=== PATIENT | female | born 1970 | race Caucasian/White ===

== ENCOUNTER 2023-11-04 15:48 | Emergency (ER) | payer MEDICAID ==
[2023-11-04 16:34] LABS: HCG,QUALITATIVE BLOOD NEGATIVE
[2023-11-04 16:37] LABS: BASOPHILS % (AUTO) 1.1 %; EOSINOPHILS % (AUTO) 3.3 %; HCT - HEMATOCRIT 31.1 % (37.0-47.0); HGB - HEMOGLOBIN 9.1 g/dL (12.0-16.0); LYMPHOCYTES % (AUTO) 14.4 %; MEAN CORPUSCULAR HGB CONC 29.3 g/dL (32.0-36.0); MEAN CORPUSCULAR VOLUME 82.1 fL (81.0-99.0); MEAN PLATELET VOLUME 9.9 fL (7.9-10.8); MONOCYTES % (AUTO) 15.6 %; NEUTROPHILS % (AUTO) 65.6 %; PLT - PLATELET COUNT 46 10^3/uL (130-450); RED BLOOD COUNT 3.79 10^6/uL (4.20-5.40); RED CELL DISTRIBUTION WIDTH 17.7 % (12.0-15.0)
[2023-11-04 16:40] LABS: WHITE BLOOD COUNT 1.8 x10^3/uL (4.8-10.8)
[2023-11-04 16:41] LABS: ABNORMAL LYMPHS % (MANUAL) 0 %
[2023-11-04 16:51] LABS: ALBUMIN 3.3 g/dL (3.2-5.5); ALBUMIN/GLOBULIN RATIO 0.9 (1.0-2.2); CALCIUM 8.6 mg/dL (8.5-10.3); CREATININE 0.6 mg/dL (0.6-1.3); POTASSIUM 3.5 mmol/L (3.5-4.5); TOTAL PROTEIN 6.8 g/dL (6.4-8.9)
[2023-11-04 17:01] LABS: BAND NEUTROPHILS % (MANUAL) 2 %; LYMPHOCYTES # (MANUAL) 0.3 10^3/uL (1.5-3.5); LYMPHOCYTES % (MANUAL) 15 %; MONOCYTES # (MANUAL) 0.2 10^3/uL (0.0-1.0); NEUTROPHILS # (MANUAL) 1.2 10^3/uL (1.5-6.6); REACTIVE LYMPHS % (MANUAL) 3 %
[2023-11-04 17:02] LABS: DIFFERENTIAL COMMENT MANUAL DIFFERENTIAL; PLATELET ESTIMATE, MANUAL DECREASED (<130,000) (NORMAL); PLATELET MORPHOLOGY NORMAL APPEARANCE (NORMAL)
[2023-11-04] MEDS ORDERED: iohexoL-300 100 ML VIAL ONE (17:08)
[2023-11-04 17:19] LABS: THYROID STIMULATING HORMONE 1.75 uIU/mL (0.34-5.60)
[2023-11-04 17:51] LABS: INR 1.8 (0.8-1.2); PT - PROTHROMBIN TIME 18.4 secs (9.9-12.6)
--- NOTE | 2023-11-04 17:54 | ED Physician Documentation ---
History of Present Illness - Stated complaint Stated Complaint: - Chief complaint Chief Complaint: Abd Pain - History obtained from History obtained from: Patient - Additonal information Additional information: The patient presents to the emergency department with multiple complaints but primarily, menorrhagia that has gotten progressively worse over the last 10 years but especially the past 4 days. The patient states that she has had some irregular periods for the last 10 years and that she has never seen an [facility] for this. She has been admitted twice once in [place] in 2018 and once in [facility] last April. She states that she was never told why she has the bleeding and that "nothing was ever done" for what ever the underlying problem was. She states she was told that she had multiple "cysts" in her uterus after imaging in [place]. She denies being on any anticoagulants. She has history of factor V Leiden actually, she states. She has never had a clot that she knows of. The patient does have "liver problems", she states, but that she is not sure why and that "they could never figure it out". She denies currently using alcohol though she does have a history of this. The patient denies any abdominal pain or cramping. She has never been told that she knows of that she has fibroids. Patient states that she has had a sore in her nose that has not healed over the last 8 months and she is worried about that. She also states she has a lesion on her right shoulder That his suddenly scabbed. She denies any recent weight loss but actually states that she has had weight gain recently and that she has noticed swelling in her ankles that she normally does not have. Patient states she does feel tired. She has had some intermittent nausea and some decrease in appetite. She has not noticed any fullness in her stomach area. No other complaints at this time. PD PAST MEDICAL HISTORY - Past Medical History Past Medical History: Yes Cardiovascular: None Respiratory: None Neuro: None Endocrine/Autoimmune: None GI: None BELT LOOP CUTTER: None : None HEENT: None Psych: None Musculoskeletal: None Derm: None - Past Surgical History Past Surgical History: No - Allergies Allergies/Adverse Reactions: Allergies Allergy/AdvReac Type Severity Reaction Status Date / Time levofloxacin [From Levaquin] Allergy Rash Verified 11/04/23 15:59 - Social History Does the pt smoke?: Yes Smoking Status: Current every day smoker Does the pt drink ETOH?: Yes Does the pt have substance abuse?: No - Immunizations Immunizations are current?: Yes - POLST Patient has POLST: No PD ED PE NORMAL - Vitals Vital signs reviewed: Yes - General General: Alert and oriented X 3, No acute distress, Well developed/nourished, Other (Appears older than stated age.) - HEENT HEENT: Atraumatic, PERRL, EOMI, Moist mucous membranes, Other (Icteric) - Neck Neck: Supple, no meningeal sign - Cardiac Cardiac: RRR, No murmur - Respiratory Respiratory: No respiratory distress, Clear bilaterally - Abdomen Abdomen: Soft, Non tender, Other (Firm mass noted in left upper quadrant. Nontender. No right upper quadrant mass.) - Female Female : Water Conservationist present, Other (Moderate dark red vaginal bleeding. No cervical motion tenderness. No cervical mass. Firm mass noted in uterus. No adnexal tenderness.) - Derm Derm: Warm and dry, No rash, Other (Slight jaundice.) - Extremities Extremities: No deformity, Other (1+ pitting edema bilateral ankles.) - Neuro Neuro: Other (Alert, appropriate, grossly intact.) - Psych Psych: Normal mood, Normal affect Results - Vitals Vitals: Vital Signs - 24 hr 11/04/23 15:53 Temperature 36.5 C Heart Rate 90 Respiratory 16 Rate Blood Pressure 137/65 H O2 Saturation 99 Oxygen O2 Source Room air - Labs Labs: Laboratory Tests 11/04/23 11/04/23 11/04/23 16:06 16:06 16:06 WBC 1.8 L* RBC 3.79 L Hgb 9.1 L Hct 31.1 L MCV 82.1 MCH 24.0 L MCHC 29.3 L RDW 17.7 H Plt Count 46 L MPV 9.9 Neut # (Auto) Not Reportable Lymph # (Auto) Not Reportable Ray # (Auto) Not Reportable Eos # (Auto) Not Reportable Baso # (Auto) Not Reportable Absolute Nucleated RBC Not Reportable Total Counted 100 Band Neuts % (Manual) 2 Reactive Lymphs % (Man) 3 Abnorm Lymph % (Manual) 0 Nucleated RBC % Not Reportable Neutrophils # (Manual) 1.2 L Lymphocytes # (Manual) 0.3 L Monocytes # (Manual) 0.2 Eosinophils # (Manual) 0.0 Basophils # (Manual) 0.0 Differential Comment MANUAL DIFFERENTIAL Platelet Estimate DECREASED (<130,000) Platelet Morphology NORMAL APPEARANCE RBC Morph Micro Appear 1+ POLYCHROMASIA Sodium 134 L Potassium 3.5 Chloride 104 Carbon Dioxide 23 Anion Gap 7.0 BUN 5 L Creatinine 0.6 Estimated GFR (MDRD) 105 Glucose 134 H Calcium 8.6 Total Bilirubin 4.0 H AST 58 H ALT 23 Alkaline Phosphatase 83 Total Protein 6.8 Albumin 3.3 Globulin 3.5 Albumin/Globulin Ratio 0.9 L Lipase 42 TSH 1.75 Serum HCG, Qual NEGATIVE PD Medical Decision Making - ED course Complexity details: reviewed results, re-evaluated patient, considered differential, d/w patient ED course: Patient was found to be pancytopenic with a platelet count of 46. Her ultrasound showed a single uterine fibroid. She was found to have an elevated bilirubin on her ER abdominal panel of 4.0. Based on the physical exam finding of left upper quadrant mass I felt the patient should have a CT scan of the abdomen and pelvis as well. I added a chest because of concern for potential underlying malignancy. This is pending at this time. Patient signed out to Dr. Lynn at change of shift, pending CT results and final disposition. Departure - Departure
[2023-11-04] MEDS: iohexoL-300 100 ML VIAL IVP ONE (18:01)
--- NOTE | 2023-11-04 18:12 | Ultrasound Report ---
PROCEDURE: Pelvic w/Transvaginal INDICATIONS: pelvic pain, R TECHNIQUE: Real-time scanning was performed of the pelvic organs, with image documentation. Additional endovagi nal scanning was necessary due to incomplete visualization of the adnexal and endometrial structures by transabdominal scanning. COMPARISON: None. FINDINGS: Uterus: Uterus is anteverted and normal in size at 10.6 x 6.2 x 8.9 cm. The myometrium is diffusely heterogeneous. The endometrium measures 7 mm in combined thickness. Fundal fibroid measuring up to 2.6 cm. Posterior wall uterine fibroid measuring 2.5 cm. Posterior wall fibroid measuring 5.7 cm wit h mass effect upon the underlying endometrial stripe. Ovaries: The right ovary measures 3 x 1.8 x 2.3 cm cm, with a calculated ovarian volume of 5.1 cc. The left ovary measures 1.5 x 1.5 x 1.3 cm, with a calculated ovarian volume of 1.6 cc. The ovaries have a normal sonographic appearance. Less than 12 follicles can be seen in each ovary. No adnexal masses are seen. No cystic lesions measuring greater than 3 cm. Other: No pathologic free abdominal or pelvic fluid. IMPRESSION: Fibroid uterus. Reviewed by: Georges Mistry MD on 11/04/2023 5:11 PM KISHAN Approved by: Georges Mistry MD on 11/04/2023 5:11 PM KISHAN Station ID: [id number]
--- NOTE | 2023-11-04 18:22 | CT Report ---
PROCEDURE: Chest W INDICATIONS: LUQ mass, cough CONTRAST: 100ml omni 300 TECHNIQUE: After the administration of intravenous contrast, a CT scan of the chest was performed. Images were recorded and evaluated at appropriate window settings. Reformats: axial MIP of the chest, coronal and sagittal. For radiation dose reduction, the following was used: automated exposure control, adjustme nt of mA and/or kV according to patient size. COMPARISON: None. FINDINGS: Image quality: Diagnostic. Chest wall and lower neck: No thyroid nodule which requires sonographic follow up. No axillary or sup raclavicular adenopathy by size. Lungs and pleura: No consolidation. No pleural effusions. No pneumothorax. No suspicious pulmonary n odules which require follow up. Mediastinum: Heart size is normal. No pericardial effusion. No large vessel abnormality. No mediastin al adenopathy by size criteria. Bones: No aggressive osseous abnormality. Upper Abdomen: Small hiatal hernia. Hepatosplenomegaly. Hepatic steatosis. IMPRESSION: No concerning consolidation. Hepatosplenomegaly. Reviewed by: Georges Mistry MD on 11/04/2023 5:20 PM KISHAN Approved by: Georges Mistry MD on 11/04/2023 5:20 PM KISHAN Station ID: [id number]
--- NOTE | 2023-11-04 18:28 | CT Report ---
PROCEDURE: Abdomen/Pelvis W INDICATIONS: LUQ mass, elevated bili CONTRAST: 100ml omni 300 TECHNIQUE: After the administration of intravenous contrast, a CT scan of the abdomen and pelvis was performed. Images were recorded and evaluated at appropriate window settings. Reformats: coronal and sagittal. F or radiation dose reduction, the following was used: automated exposure control, adjustment of mA and /or kV according to patient size. COMPARISON: CT chest from same date, pelvic ultrasound from same date. FINDINGS: Image quality: Diagnostic. Lower chest: Unremarkable. Liver: Hepatomegaly measuring 19 cm in cranial caudal dimension. Nodular contours of the liver. Hepat ic steatosis. Gastrosplenic varices. Cannulization of the umbilical vein. Portal vein is patent. Esop hageal varices. Gallbladder and biliary tree: No radiopaque stones or wall thickening. No biliary dilation. Spleen: Splenomegaly measuring 22 cm in coronal dimension. Pancreas: No pancreatic ductal dilation. Adrenals: No adrenal nodule. Kidneys and ureters: No hydronephrosis. No renal cystic lesion which requires follow up. No solid mas s. Stomach, bowel and peritoneum: No bowel distension. No pathologic free fluid. Lymph nodes: Mildly prominent lymph nodes throughout periaortic region. Vessels: No infrarenal aortic aneurysm. PELVIS Reproductive organs: Enlarged heterogeneous appearing uterus. Bladder: No abnormal wall thickening, accounting for underdistention. Pelvic lymph nodes: No pelvic adenopathy by size criteria. Bones: No aggressive osseous abnormality. Other: No significant ventral or inguinal hernia. IMPRESSION: Hepatosplenomegaly with cirrhotic changes and prominent varicosities. Reviewed by: Georges Mistry MD on 11/04/2023 5:26 PM KISHAN Approved by: Georges Mistry MD on 11/04/2023 5:26 PM AKGAMA Station ID: [id number]
[2023-11-04] MEDS: SODIUM CHLORIDE 0.9% 1,000 ML IV STA (18:31)
[2023-11-04 19:14] LABS: BASOPHILS % (AUTO) 0.7 %; EOSINOPHILS % (AUTO) 2.8 %; HCT - HEMATOCRIT 27.7 % (37.0-47.0); HGB - HEMOGLOBIN 8.2 g/dL (12.0-16.0); LYMPHOCYTES % (AUTO) 16.3 %; MEAN CORPUSCULAR HEMOGLOBIN 24.5 pg (27.0-31.0); MEAN CORPUSCULAR HGB CONC 29.6 g/dL (32.0-36.0); MEAN CORPUSCULAR VOLUME 82.7 fL (81.0-99.0); MEAN PLATELET VOLUME 9.7 fL (7.9-10.8); MONOCYTES % (AUTO) 14.9 %; NEUTROPHILS % (AUTO) 64.6 %; PLT - PLATELET COUNT 39 10^3/uL (130-450); RED BLOOD COUNT 3.35 10^6/uL (4.20-5.40); RED CELL DISTRIBUTION WIDTH 17.7 % (12.0-15.0)
[2023-11-04 19:16] LABS: WHITE BLOOD COUNT 1.4 x10^3/uL (4.8-10.8)
[2023-11-04 19:17] LABS: ABNORMAL LYMPHS % (MANUAL) 0 %
[2023-11-04 19:39] LABS: BAND NEUTROPHILS % (MANUAL) 2 %; BASOPHILS % (MANUAL) 2 %; EOSINOPHILS # (MANUAL) 0.1 10^3/uL (0-0.7); LYMPHOCYTES # (MANUAL) 0.2 10^3/uL (1.5-3.5); LYMPHOCYTES % (MANUAL) 13 %; MONOCYTES # (MANUAL) 0.2 10^3/uL (0.0-1.0); NEUTROPHILS # (MANUAL) 0.9 10^3/uL (1.5-6.6); REACTIVE LYMPHS % (MANUAL) 3 %
[2023-11-04 19:40] LABS: DIFFERENTIAL COMMENT MANUAL DIFFERENTIAL; PLATELET ESTIMATE, MANUAL DECREASED (<130,000) (NORMAL); PLATELET MORPHOLOGY NORMAL APPEARANCE (NORMAL)
--- NOTE | 2023-11-04 19:57 | ED Physician Documentation ---
ED Addendum - Addendum Addendum: Patient was signed out to me by Dr. Fortune awaiting repeat evaluation, CT scan and follow-up and repeat CBC. CT scans show hepatosplenomegaly, likely liver cirrhosis and fibroid uterus. Her hemoglobin did drop approximately 1 g. We did receive records from [place]. Her laboratory studies are not much changed from March 2023. She has a history of pancytopenia, liver cirrhosis. Apparently has a history of factor V Leiden, hematology consult did not recommend anticoagulation due to her ongoing bleeding issues. She has portal hypertension as well. Apparently there was plan to do a bone marrow biopsy but this was not performed per the patient. At the time of her admission her white blood cell count was 2.3, hemoglobin 8.8, platelets of 59. Creatinine at that time was 0.5. Patient states she is not actively bleeding currently. Her mild hemoglobin drop here is consistent with a drop from IV fluids given. Reviewed the patient's records with her. She states that she did know she had fibroids, liver cirrhosis and factor V Leiden. We discussed at length that she will need close follow-up with multiple specialist given her multiple comorbidities. I did speak with gynecology, unlikely that they would perform any procedures on her at this critical access hospital, given her other medical comorbidities. Discussed with the patient that her procedures will likely need to be performed at a larger facility such as [facility] or [facility] in [place]. Patient counseled regarding signs and symptoms for which I believe and urgent re-evaluation would be necessary. Patient with good understanding of and agreement to plan and is comfortable going home at this time This document was made in part using voice recognition software. While efforts are made to proofread this document, sound alike and grammatical errors may occur. Departure - Departure Disposition: Home, Self Care Clinical Impression: Hepatosplenomegaly, Pancytopenia, Thrombocytopenia Uterine fibroid Qualifiers: Uterine leiomyoma location: unspecified location Qualified Code(s): D25.9 - Leiomyoma of uterus, unspecified Liver cirrhosis Qualifiers: Hepatic cirrhosis type: unspecified hepatic cirrhosis Ascites presence: without ascites Qualified Code(s): K74.60 - Unspecified cirrhosis of liver Esophageal varices Qualifiers: Esophageal varices type: unspecified type Esophageal varices bleeding: without bleeding Qualified Code(s): I85.00 - Esophageal varices without bleeding Anemia Qualifiers: Anemia type: unspecified type Qualified Code(s): D64.9 - Anemia, unspecified Leukopenia Qualifiers: Leukopenia type: unspecified Qualified Code(s): D72.819 - Decreased white blood cell count, unspecified Condition: Stable Instructions: ED Cirrhosis Liver Follow-Up: [facility] [Provider Group] [facility] [Provider Group] [facility] [Provider Group] [facility] [Provider Group] [facility] [Provider Group] Comments: As we discussed your blood counts are stable from your prior visit in [place] in March 2023. You have uterine fibroids, hepatic cirrhosis and pancytopenia meaning your white blood cell count, red blood cell count and platelet counts are all low. You also have indicated a history of factor V Leiden. It is important that you follow-up with a GI/liver specialist, structural steel erector, primary care provider and likely mental health case manager. Given the complexity of your medical p roblems and need for specialty services not available here, you will be better served at a larger facility such as [facility] in [place] or [facility] in [place]. You do not need to be hospitalized tonight. But it is important that you follow-up closely with specialists to take care of your medical issues. I would recommend that you try to obtain your medical records from the other states you have lived in recently as well. PROCEDURE: Pelvic w/Transvaginal INDICATIONS: pelvic pain, R TECHNIQUE: Real-time scanning was performed of the pelvic organs, with image documentation. Additional endovaginal scanning was necessary due to incomplete visualization of the adnexal and endometrial structures by transabdominal scanning. COMPARISON: None. FINDINGS: Uterus: Uterus is anteverted and normal in size at 10.6 x 6.2 x 8.9 cm. The myometrium is diffusely heterogeneous. The endometrium measures 7 mm in combined thickness. Fundal fibroid measuring up to 2.6 cm. Posterior wall uterine fibroid measuring 2.5 cm. Posterior wall fibroid measuring 5.7 cm with mass effect upon the underlying endometrial stripe. Ovaries: The right ovary measures 3 x 1.8 x 2.3 cm cm, with a calculated ovarian volume of 5.1 cc. The left ovary measures 1.5 x 1.5 x 1.3 cm, with a calculated ovarian volume of 1.6 cc. The ovaries have a normal sonographic appearance. Less than 12 follicles can be seen in each ovary. No adnexal masses are seen. No cystic lesions measuring greater than 3 cm. Other: No pathologic free abdominal or pelvic fluid. IMPRESSION: Fibroid uterus. PROCEDURE: Chest W INDICATIONS: LUQ mass, cough CONTRAST: 100ml omni 300 TECHNIQUE: After the administration of intravenous contrast, a CT scan of the chest was performed. Images were recorded and evaluated at appropriate window settings. Reformats: axial MIP of the chest, coronal and sagittal. For radiation dose reduction, the following was used: automated exposure control, adjustment of mA and/or kV according to patient size. COMPARISON: None. FINDINGS: Image quality: Diagnostic. Chest wall and lower neck: No thyroid nodule which requires sonographic follow up. No axillary or supraclavicular adenopathy by size. Lungs and pleura: No consolidation. No pleural effusions. No pneumothorax. No suspicious pulmonary nodules which require follow up. Mediastinum: Heart size is normal. No pericardial effusion. No large vessel abnormality. No mediastinal adenopathy by size criteria. Bones: No aggressive osseous abnormality. Upper Abdomen: Small hiatal hernia. Hepatosplenomegaly. Hepatic steatosis. IMPRESSION: No concerning consolidation. Hepatosplenomegaly. EXAM: [id number] CT/ABPEW ([id number]) PROCEDURE: Abdomen/Pelvis W INDICATIONS: LUQ mass, elevated bili CONTRAST: 100ml omni 300 TECHNIQUE: After the administration of intravenous contrast, a CT scan of the abdomen and pelvis was performed. Images were recorded and evaluated at appropriate window settings. Reformats: coronal and sagittal. For radiation dose reduction, the following was used: automated exposure control, adjustment of mA and/or kV according to patient size. COMPARISON: CT chest from same date, pelvic ultrasound from same date. FINDINGS: Image quality: Diagnostic. Lower chest: Unremarkable. Liver: Hepatomegaly measuring 19 cm in cranial caudal dimension. Nodular contours of the liver. Hepatic steatosis. Gastrosplenic varices. Cannulization of the umbilical vein. Portal vein is pat ent. Esophageal varices. Gallbladder and biliary tree: No radiopaque stones or wall thickening. No biliary dilation. Spleen: Splenomegaly measuring 22 cm in coronal dimension. Pancreas: No pancreatic ductal dilation. Adrenals: No adrenal nodule. Kidneys and ureters: No hydronephrosis. No renal cystic lesion which requires follow up. No solid mass. Stomach, bowel and peritoneum: No bowel distension. No pathologic free fluid. Lymph nodes: Mildly prominent lymph nodes throughout periaortic region. Vessels: No infrarenal aortic aneurysm. PELVIS Reproductive organs: Enlarged heterogeneous appearing uterus. Bladder: No abnormal wall thickening, accounting for underdistention. Pelvic lymph nodes: No pelvic adenopathy by size criteria. Bones: No aggressive osseous abnormality. Other: No significant ventral or inguinal hernia. IMPRESSION: Hepatosplenomegaly with cirrhotic changes and prominent varicosities. Forms: PCP List Discharge Date/Time: 11/04/23 20:55
[2023-11-04 20:57] VITALS: BP 140/76; O2SAT 100
== END 2023-11-04 20:55 | disposition home or self-care (01) ==
LOC: ED 15:48
DX: K74.60 Unspecified cirrhosis of liver (principal); I85.00 Esophageal varices without bleeding; D64.9 Anemia, unspecified; D72.819 Decreased white blood cell count, unspecified; R16.2 Hepatomegaly with splenomegaly, not elsewhere classified; D61.818 Other pancytopenia; D69.6 Thrombocytopenia, unspecified; D25.9 Leiomyoma of uterus, unspecified; D68.51 Activated protein C resistance; F17.200 Nicotine dependence, unspecified, uncomplicated
CPT/HCPCS: 36415; 71260; 74177; 76830; 76856; 80053; 83690; 84443; 84703; 85025; 85610; 86850; 86900; 86901; 99284; Q9967